=== PATIENT | female | born 1990 | race American Indian/Alaskan Native ===

== ENCOUNTER 2022-02-10 20:11 | Emergency (ER) | payer BC ==
[2022-02-10] MEDS ORDERED: IBUPROFEN 800 MG TAB PO ONE (21:19)
--- NOTE | 2022-02-10 21:19 | Emergency Department Report ---
ED Lower Extremity HPI - General Chief Complaint: Extremity Problem,Nontraumatic Stated Complaint: HISTORY OF BLOOD CLOTS Time Seen by Provider: 02/10/22 21:15 Source: patient Mode of arrival: Ambulatory Limitations: No Limitations - History of Present Illness Initial Comments: Patient is a 31-year-old female with history of DVT on Eliquis presenting to ED with complaint of pain in her left leg for the past week. States the pain originates in her gluteal region and radiates down her posterior thigh. - Related Data Allergies Allergy/AdvReac Type Severity Reaction Status Date / Time hydrocodone Allergy Unknown Verified 02/10/22 20:32 ED Review of Systems ROS: Stated complaint: HISTORY OF BLOOD CLOTS Other details as noted in HPI Comment: All other systems reviewed and negative Constitutional: denies: chills, fever Respiratory: denies: cough, shortness of breath, wheezing Cardiovascular: denies: chest pain, palpitations Gastrointestinal: denies: abdominal pain, nausea, diarrhea Genitourinary: denies: urgency, dysuria, discharge Musculoskeletal: other (Leg pain) Skin: denies: rash, lesions Neurological: denies: headache, weakness, paresthesias Psychiatric: denies: anxiety, depression ED Physical Exam - General Limitations: No Limitations General appearance: alert, in no apparent distress - Head Head exam: Present: atraumatic, normocephalic - Neck Neck exam: Present: normal inspection. Absent: tenderness - Respiratory Respiratory exam: Present: normal lung sounds bilaterally. Absent: respiratory distress - Cardiovascular Cardiovascular Exam: Present: regular rate, normal rhythm, normal heart sounds - Rectal Rectal exam: Present: deferred - Extremities Exam Extremities exam: Absent: tenderness, pedal edema, calf tenderness - Neurological Exam Neurological exam: Present: alert, oriented X3, CN II-XII intact - Psychiatric Psychiatric exam: Present: normal affect, normal mood - Skin Skin exam: Present: warm, dry, intact, normal color ED Course Vital Signs 02/10/22 02/10/22 02/10/22 20:14 21:18 21:39 Temperature 98.6 F 97.9 F Pulse Rate 109 H 82 Respiratory 18 19 Rate Blood Pressure 129/94 Blood Pressure 107/78 [Right] O2 Sat by Pulse 96 100 98 Oximetry 02/10/22 02/10/22 02/11/22 21:40 23:27 00:25 Temperature 97.9 F 98.0 F Pulse Rate 80 86 Respiratory 19 19 15 Rate Blood Pressure 107/66 Blood Pressure 139/91 106/66 [Right] O2 Sat by Pulse 98 98 100 Oximetry ED Lower Extremity MDM - Medical Decision Making Lower extremity Doppler negative for DVT.Patient reports history of sciatica which is on the differential. She was given ibuprofen for pain. Patient stab le for discharge home with return precautions. Critical care attestation.: If time is entered above; I have spent that time in minutes in the direct care of this critically ill patient, excluding procedure time. ED Disposition Clinical Impression: Left leg pain Disposition: 01 HOME / SELF CARE / HOMELESS Is pt being admited?: No Condition: Stable Instructions: Sciatica Time of Disposition: 00:37
[2022-02-10 22:54] LABS: Bilirubin,Urine NEG (Negative); Blood,Urine NEG (Negative); Color,Urine Yellow (Yellow); Protein,Urine <15 mg/dL mg/dL (Negative); Urobilinogen,Urine < 2.0 mg/dL (<2.0)
[2022-02-10 22:55] LABS: Mucus,Urine FEW /HPF; RBC,Urine < 1.0 /HPF (0.0-6.0)
[2022-02-10 23:03] LABS: Benzodiazepines Screen,Urine Negative; Cocaine Screen,Urine Negative; Methadone Screen,Urine Negative; Opiate Screen,Urine Negative
[2022-02-10 23:14] LABS: Amphetamine Screen,Urine Positive; Cannabinoid Screen,Urine Positive
--- NOTE | 2022-02-11 00:20 | Vascular Lab Report ---
DUPLEX DOPPLER LOWER EXTREMITY VEINS, LEFT INDICATION / CLINICAL INFORMATION: Leg pain/possible DVT. TECHNIQUE: Duplex doppler imaging was performed through the veins of the left lower extremity using v enous compression and other maneuvers. COMPARISON: None available. FINDINGS: LEFT COMMON FEMORAL VEIN: Negative. LEFT FEMORAL VEIN: Negative. LEFT POPLITEAL VEIN: Negative. LEFT CALF VEINS: Negative. ADDITIONAL FINDINGS: None. IMPRESSION: 1. No sonographic evidence for DVT in the left lower extremity. Signer Name: Paul Moreno MD Signed: 02/11/2022 12:16 AM Workstation Name: [id number]
[2022-02-11 00:27] VITALS: BP 106/66
== END 2022-02-11 00:59 | disposition home or self-care (01) ==
LOC: ED 20:11
DX: M79.605 Pain in left leg (principal); Z79.899 Other long term (current) drug therapy
CPT/HCPCS: 80307; 81001; 99284